=== PATIENT | male | born 1970 | race Caucasian/White ===

== ENCOUNTER 2020-12-07 03:36 | Observation (INO) | payer OTHER ==
[2020-12-07 04:41] LABS: #Basophils 0.1 thou/uL (0.0-0.2); #Eosinphils 0.1 thou/uL (0.0-0.7); #Lymphocytes 1.4 thou/uL (1.20-3.40); #Monocytes 0.7 thou/uL (0.11-0.59); #Neutrophils 5.8 thou/uL (1.40-6.50); %Basophils 1.6 % (0.0-1.0); %Eosinophils 1.2 % (0.0-10.0); %Lymphocytes 17.6 % (21.0-51.0); %Monocytes 8.7 % (0.0-10.0); %Neutrophils 70.8 % (42.0-75.0); Hemoglobin 11.5 g/dL (14.0-18.0); Mean Corpuscular HGB CONC 29.8 g/dL (32.0-36.0); Mean Corpuscular Hemoglobin 26.5 pg (27.0-31.0); Mean Corpuscular Volume 88.9 fL (78.0-98.0); Mean Platelet Volume 6.9 fL (7.4-10.4); Platelet Count 400 thou/uL (130-400); RBC Distribution Width 16.1 % (11.5-14.5); Red Blood Cell (RBC) Count 4.34 mill/uL (4.70-6.10); White Blood Cell (WBC) Count 8.1 thou/uL (4.8-10.8)
[2020-12-07 05:01] LABS: ALT (SGPT) 23 U/L (8-55); AST (SGOT) 28 U/L (5-34); Albumin 3.7 g/dL (3.5-5.0); Alkaline Phosphatase 67 U/L (40-110); Anion Gap 13 mmol/L (10-20); BUN (Urea Nitrogen) 21 mg/dL (8.4-25.7); Bilirubin, Total 1.9 mg/dL (0.2-1.2); Calc. Creatinine Clearance 0 mL/min (70-130); Calcium 8.9 mg/dL (7.8-10.44); Carbon Dioxide 21 mmol/L (22-29); Chloride 106 mmol/L (98-107); Globulin 3.4 g/dL (2.4-3.5); Glucose 106 mg/dL (70-105); Potassium 4.4 mmol/L (3.5-5.1); Protein, Total 7.1 g/dL (6.0-8.3); Sodium 136 mmol/L (136-145)
[2020-12-07] MEDS ORDERED: Aspirin Chewable 81 MG TAB ONE ×2 (05:30→05:31)
[2020-12-07] MEDS ORDERED: Ondansetron PF 4 MG/2 ML Vial IVP PRN (07:30)
[2020-12-07] MEDS ORDERED: Acetaminophen 325 MG TAB PO PRN (07:30)
[2020-12-07] MEDS ORDERED: Ondansetron ODT 4 MG TAB SL PRN (07:30)
[2020-12-07 08:22] LABS: Troponin I 0.047 ng/mL (< 0.028)
[2020-12-07 10:44] LABS: Troponin I 0.047 ng/mL (< 0.028)
[2020-12-07] MEDS ORDERED: Lisinopril 5 MG TAB PO SCH (11:30)
[2020-12-07] MEDS ORDERED: Iopamidol 370 76% 100 ML VIAL ONE (12:47)
[2020-12-07] MEDS ORDERED: Furosemide 20 MG/2 ML VIAL SLOW IVP SCH (14:00)
[2020-12-07 15:50] LABS: Bacteria/HPF None Seen HPF (None Seen); Bilirubin Negative (Negative); Blood, Urine Negative (Negative); Clarity Clear (Clear); Glucose, Urine (Dipstick) Normal (Negative); Ketone, Urine Negative (Negative); Leukocyte Negative Leu/uL (Negative); Nitrite Negative (Negative); Protein, Urine (Dipstick) Negative (Neg-Trace); RBC/HPF 0-3 HPF (0-3); Specific Gravity, Urine 1.025 (1.002-1.036); Squamous Epithelial 0-3 HPF (0-3); Urobilinogen Normal mg/dL (Less than 2); WBC/HPF 0-3 HPF (0-3)
[2020-12-07 15:51] LABS: Urine Culture Reflex No No
[2020-12-07 15:59] LABS: Amphetamine Not Detected (NotDetected); Barbiturates Screen Not Detected (NotDetected); Benzodiazepine Screen Not Detected (NotDetected); Cocaine Metabolite Screen Not Detected (NotDetected); Medtox Reader # READER 4; Methadone Not Detected (NotDetected); Methamphetamine Not Detected (NotDetected); Opiate Screen Detected (NotDetected); Oxycodone Screen Not Detected (NotDetected); Phencyclidine (PCP) Not Detected (NotDetected); THC/Cannabinoid Screen Not Detected (NotDetected); Tricyclic Screen Not Detected (NotDetected)
[2020-12-07 16:00] LABS: Medtox Control Line Valid? VALID (VALID)
[2020-12-07 16:44] LABS: SARS-CoV-2 PCR by NAA Not Detected (NotDetected)
[2020-12-07] MEDS: Carvedilol 3.125 MG TAB PO SCH (17:24)
[2020-12-07] MEDS: DOBUTamine 500 mg/250 ml 250 ML IVPB SCH (21:17)
[2020-12-08] MEDS ORDERED: Furosemide 40 MG/4 ML VIAL SLOW IVP SCH (06:00)
[2020-12-08 06:16] LABS: #Basophils 0.1 thou/uL (0.0-0.2); #Eosinphils 0.2 thou/uL (0.0-0.7); #Lymphocytes 1.7 thou/uL (1.20-3.40); #Monocytes 0.8 thou/uL (0.11-0.59); #Neutrophils 4.3 thou/uL (1.40-6.50); %Basophils 1.3 % (0.0-1.0); %Eosinophils 2.8 % (0.0-10.0); %Lymphocytes 23.8 % (21.0-51.0); %Monocytes 10.8 % (0.0-10.0); %Neutrophils 61.3 % (42.0-75.0); Hemoglobin 12.1 g/dL (14.0-18.0); Mean Corpuscular HGB CONC 33.7 g/dL (32.0-36.0); Mean Corpuscular Volume 88.9 fL (78.0-98.0); Mean Platelet Volume 6.9 fL (7.4-10.4); Platelet Count 359 thou/uL (130-400); RBC Distribution Width 15.8 % (11.5-14.5); Red Blood Cell (RBC) Count 4.03 mill/uL (4.70-6.10); White Blood Cell (WBC) Count 7.1 thou/uL (4.8-10.8)
[2020-12-08 06:21] VITALS: BMI 34.3
[2020-12-08 06:23] LABS: INR-International Normal Ratio 1.4; PTT 30.3 sec (22.9-36.1); Prothrombin Time 17.5 sec (12.0-14.7)
[2020-12-08 06:43] LABS: Anion Gap 11 mmol/L (10-20); BUN (Urea Nitrogen) 20 mg/dL (8.4-25.7); Calc. Creatinine Clearance 140 mL/min (70-130); Calcium 8.5 mg/dL (7.8-10.44); Carbon Dioxide 25 mmol/L (22-29); Chloride 104 mmol/L (98-107); Glucose 93 mg/dL (70-105); Iron 21 ug/dL (65-175); Iron Binding Capacity, Total 379 mcg/dL (261-462); Magnesium 1.8 mg/dL (1.6-2.6); Potassium 3.8 mmol/L (3.5-5.1); Sodium 136 mmol/L (136-145)
[2020-12-08 07:05] LABS: Ferritin 37.41 ng/mL (22-322)
[2020-12-08] MEDS ORDERED: Lisinopril 2.5 MG TAB PO SCH (09:00)
[2020-12-08] MEDS: Carvedilol 3.125 MG TAB PO SCH (09:41)
[2020-12-08] MEDS: DOBUTamine 500 mg/250 ml 250 ML IVPB SCH (09:51)
[2020-12-08 13:52] VITALS: BP 98/65; TEMP 98.1
== END 2020-12-08 15:06 | disposition home or self-care (01) ==
LOC: ERS 03:36 → 2SW 05:59
PROVIDERS: ADMIT Internal Medicine; ATTEND Internal Medicine
DX: I50.23 Acute on chronic systolic (congestive) heart failure (principal); I42.0 Dilated cardiomyopathy; I42.8 Other cardiomyopathies; M10.9 Gout, unspecified; R10.9 Unspecified abdominal pain; D64.9 Anemia, unspecified; K44.9 Diaphragmatic hernia without obstruction or gangrene; K76.0 Fatty (change of) liver, not elsewhere classified; R59.0 Localized enlarged lymph nodes; R11.2 Nausea with vomiting, unspecified; Z79.899 Other long term (current) drug therapy; Z20.822 Contact with and (suspected) exposure to COVID-19
CPT/HCPCS: 36415; 71045; 71275; 80048; 80053; 80306; 81001; 82553; 82607; 82728; 83540; 83550; 83735; 83880; 84443; 84484; 85025; 85610; 85730; 87635; 93005; 93306; 93798; 96365; 96366; 96375; 96376; G0378; J1250; J1940; Q9967; U0003; U0005